=== PATIENT | female | born 1995 | race Caucasian/White ===

== ENCOUNTER 2020-10-22 13:46 | Emergency (ER) | payer MEDICAID ==
[~2020-10-22] VITALS: Ht 170.2 cm; Wt 79.2 kg
[2020-10-22] MEDS ORDERED: ibuprofen tablet 400 MG TABLET PO ONE (14:05)
[2020-10-22] MEDS ORDERED: IBUP-1985 PO (14:08)
== END 2020-10-22 14:18 | disposition home or self-care (01) ==
LOC: ER 13:48
DX: R07.81 Pleurodynia (principal); Z59.0 Homelessness
CPT/HCPCS: 99282

== ENCOUNTER 2020-10-23 06:08 | Emergency (ER) | payer MEDICAID ==
[~2020-10-23] VITALS: Ht 170.2 cm; Wt 86.4 kg
[~2020-10-23 06:08] MED LIST: IBUP-1985 PO
[2020-10-23] MEDS ORDERED: acetaminophen 325mg tablet PO ONE (06:35)
[2020-10-23 06:41] VITALS: BP 113/78
== END 2020-10-23 06:48 | disposition home or self-care (01) ==
LOC: ER 06:09
DX: R07.81 Pleurodynia (principal); Z59.0 Homelessness; Z79.899 Other long term (current) drug therapy; Z00.01 Encounter for general adult medical examination with abnormal findings
CPT/HCPCS: 99282

== ENCOUNTER 2020-10-30 10:05 | Emergency (ER) | payer MEDICAID ==
--- NOTE | 2020-10-30 10:28 | NUR ---
Pt reported to throw clipboard at registration staff and left lobby.
== END 2020-10-30 11:09 | disposition left against medical advice (07) ==
LOC: ER 10:05
DX: R07.81 Pleurodynia (principal); Z53.21 Procedure and treatment not carried out due to patient leaving prior to being seen by health care provider

== ENCOUNTER 2020-11-13 05:13 | Emergency (ER) | payer MEDICAID ==
[~2020-11-13] VITALS: Ht 170.2 cm; Wt 65.9 kg
[2020-11-13 05:16] VITALS: BP 119/79
--- NOTE | 2020-11-13 05:33 | NUR ---
UNABLE TO ASSESS PATIENT DUE TO UNCOOPERATIVE BEHAVIOR, NOT ANSWERING QUESTIONS, PT GIVEN PANTS AND LEFT AMA WITHOUT SIGNING PAPERS
== END 2020-11-13 05:36 | disposition left against medical advice (07) ==
LOC: ER 05:13
DX: R19.7 Diarrhea, unspecified (principal); Z13.89 Encounter for screening for other disorder; Z59.0 Homelessness
CPT/HCPCS: 99281

== ENCOUNTER 2020-11-29 11:56 | Emergency (ER) | payer MEDICAID ==
[~2020-11-29] VITALS: Ht 167.6 cm; Wt 77.4 kg
[2020-11-29 12:01] VITALS: BP 132/71
--- NOTE | 2020-11-29 13:39 | NUR ---
Patient attempted to call back to room x3, patient not in lobby. Attempted to contact patient by phone, number disconnected. aware of LWOB
== END 2020-11-29 13:45 | disposition left against medical advice (07) ==
LOC: ER 11:57
DX: M79.606 Pain in leg, unspecified (principal); Z53.21 Procedure and treatment not carried out due to patient leaving prior to being seen by health care provider

== ENCOUNTER 2020-12-15 16:21 | Emergency (ER) | payer MEDICAID | END 2020-12-15 17:54 | disposition left against medical advice (07) | LOC: ER 16:21 | DX: Z00.00 Encounter for general adult medical examination without abnormal findings (principal); G89.29 Other chronic pain; Z60.2 Problems related to living alone; Z59.0 Homelessness; Z79.899 Other long term (current) drug therapy | CPT/HCPCS: 99281 ==

== ENCOUNTER 2020-12-24 09:54 | Emergency (ER) | payer MEDICAID ==
[~2020-12-24] VITALS: Ht 167.6 cm; Wt 68.2 kg
[2020-12-24] MEDS ORDERED: CLOT15CR73 TP (10:05)
[2020-12-24 10:06] VITALS: BP 130/64
== END 2020-12-24 10:21 | disposition home or self-care (01) ==
LOC: ER 09:55
DX: R21 Rash and other nonspecific skin eruption (principal); Z13.89 Encounter for screening for other disorder; Z59.0 Homelessness; Z79.899 Other long term (current) drug therapy
CPT/HCPCS: 99283

== ENCOUNTER 2023-04-11 14:49 | Emergency (ER) | payer MEDICAID, OTHER ==
[~2023-04-11] VITALS: Ht 170.2 cm; Wt 75.0 kg
[~2023-04-11 14:49] MED LIST changes: +CLOT15CR73 TP
[2023-04-11 14:58] VITALS: BP 98/74
[2023-04-11] MEDS ORDERED: bacitracin 15gm ointment TP ONE (15:20)
== END 2023-04-11 16:12 | disposition home or self-care (01) ==
LOC: ER 14:49
DX: J34.89 Other specified disorders of nose and nasal sinuses (principal); M79.671 Pain in right foot; M79.672 Pain in left foot; Z56.0 Unemployment, unspecified; Z59.00 Homelessness unspecified; Z79.899 Other long term (current) drug therapy
CPT/HCPCS: 99282

== ENCOUNTER 2023-04-14 20:04 | Inpatient (IN) | payer MEDICAID, OTHER ==
[~2023-04-14] VITALS: Ht 162.6 cm; Wt 88.9 kg
[2023-04-14] MEDS ORDERED: ARIPIPRAZOLE 10 MG TABLET PO STA (20:19)
[2023-04-14] MEDS ORDERED: ziprasidone IM 20mg inj **IM only IM ONE ×2 (20:20→20:38)
[2023-04-14 20:35] LABS: BASOPHILS % (AUTO) 0.6 % (0-1); EOSINOPHILS # (AUTO) 0.1 X10'3 (0-0.9); HEMATOCRIT 38.7 % (35.0-45.0); HEMOGLOBIN 12.8 g/dl (12.0-16.0); LYMPHOCYTES # (AUTO) 1.5 X10'3 (1.1-4.8); LYMPHOCYTES % (AUTO) 28.7 % (21-51); MEAN CORPUSCULAR HGB CONC 33.2 g/dL (33.0-36.5); MEAN CORPUSCULAR VOLUME 87.5 FL (78-98); MEAN PLATELET VOLUME 7.8 FL (7.4-10.4); MONOCYTES # (AUTO) 0.4 X10'3 (0-0.9); MONOCYTES % (AUTO) 7.2 % (2-12); NEUTROPHILS # (AUTO) 3.3 X10'3 (1.8-7.7); NEUTROPHILS % (AUTO) 61.5 % (42-75); PLATELET COUNT 340 X10'3 (140-440); RED BLOOD COUNT 4.43 X10'6 (4.20-5.60); RED CELL DISTRIBUTION WIDTH 13.9 % (11.5-14.5); WHITE BLOOD COUNT 5.4 X10'3 (4.5-11.0)
[2023-04-14 20:46] LABS: ALANINE AMINOTRANSFERASE 18 U/L (12-78); ALBUMIN 3.5 G/DL (3.4-5.0); ALBUMIN/GLOBULIN RATIO 1.1 (1.1-1.5); ALKALINE PHOSPHATASE 100 IU/L (46-116); ANION GAP 6 (8-16); ASPARTATE AMINO TRANSFERASE 10 U/L (10-37); BILIRUBIN,TOTAL 0.3 MG/DL (0.1-1.0); BLOOD UREA NITROGEN 18 MG/DL (7-18); BUN/CREATININE RATIO 26.5 (10.0-20.0); CALCIUM 8.6 MG/DL (8.5-10.1); CHLORIDE 106 MMOL/L (99-107); CREATININE 0.68 MG/DL (0.40-0.90); GLUCOSE 121 MG/DL (70-104); SODIUM 142 MMOL/L (135-145); TOTAL CARBON DIOXIDE 29.7 MMOL/L (24-32); TOTAL PROTEIN 6.6 G/DL (6.4-8.2); eGFR > 90 ML/MIN
[2023-04-14 20:55] LABS: ETHANOL < 0.010 GM/DL (0.0-0.010)
[2023-04-14 21:25] LABS: URINE HCG NEGATIVE (NEG)
[2023-04-14 21:44] LABS: URINE AMPHETAMINE SCREEN POSITIVE (Neg); URINE BARBITUATE SCREEN NEGATIVE (Neg); URINE BENZODIAZEPINES SCREEN NEGATIVE (Neg); URINE CANNABINOID SCREEN NEGATIVE (Neg); URINE COCAINE SCREEN NEGATIVE (Neg); URINE METHADONE SCREEN NEGATIVE (Neg); URINE OPIATE SCREEN NEGATIVE (Neg); URINE PHENCYCLIDINE SCREEN NEGATIVE (Neg)
--- NOTE | 2023-04-15 07:02 | NUR ---
Patient asked if she can call a friend or somebody as she stated she wants to go home. I explained to patient that she was here for mental health evaluation and that we have to wait for a community mental health social worker from [facility] to evaluate her. I also explained to her that she is currently on mental health hold and do not have a discharge order yet at this time.
--- NOTE | 2023-04-15 08:14 | NUR ---
Breakfast served to the patient.
--- NOTE | 2023-04-15 10:43 | NUR ---
Currently resting on the gurney, calm and comfortable
--- NOTE | 2023-04-15 13:53 | NUR ---
Patient refused vital signs. Pt repeatedly telling me she will be going home. I told patient we dont have a discharge order for her to go home at this time.
--- NOTE | 2023-04-15 16:36 | NUR ---
Patient requested to speak to me. When I got to her room, patient again stated about being discharge. I reminded her again that she is currently on mental health hold and that we will let her know if she has a discharge order. Patient started telling me that someone came to her room, the lady that come to her room talked to her about an trademark attorney in regards to getting public gurdian then started telling me about a baby. When I asked her about who's baby she was referring to or if this is her baby she was talking about, she replied to me "it could be my baby or someone else's baby!" Patient has lack of eye contact during conversation with her and frequently has flight of ideas.
--- NOTE | 2023-04-15 20:25 | NUR ---
called to give report on pt being tx to floor, [facility] nurse stated charge nurse is going to come down to ed and chart picker pt. nurse came down and picked up pt and belongings with no bedside report given. ed charge gang weigher informed
[2023-04-15] MEDS ORDERED: NO HOME MEDS (21:24)
[2023-04-15] MEDS ORDERED: mag hydrox/Alum hydrox/simeth 30ml oral suspension PO PRN (21:25)
[2023-04-15] MEDS ORDERED: acetaminophen 325mg tablet PO PRN (21:25)
[2023-04-15] MEDS ORDERED: loperamide 2mg capsule PO PRN (21:25)
--- NOTE | 2023-04-15 22:20 | NUR ---
Admission Note: 27 year old female admitted on a 5150 for GD. Per 5150 pt has hx of Schizophrenia, is making non-sensical statements, reports fear of being murdered and believes "alot of people are being killed." She is unable to formulate a viable plan for food/clothing/snf. Pt is currently homeless, has hx of being followed by [facility], and stays at the [facility] in [place] and states she has a caser [employer]. She was escorted to the unit by myself and security. Safety check completed by RICHARD Kauffman. Skin check completed by myself and Beatrice HODGES. Pt took a shower. She denies voices, but continues to make non-sensical statements, appears paranoid, and can be irritable at times.
[2023-04-16 07:50] LABS: HEMOGLOBIN A1C 5.1 % (4.5-6.2)
[2023-04-16 08:00] VITALS: BP 113/50
[2023-04-16 08:04] LABS: CHOL/HDL RATIO 3.1 (0.00-4.99); CHOLESTEROL 118 MG/DL (0-200); HDL CHOLESTEROL 38 MG/DL (35-60); LDL CHOLESTEROL 56 MG/DL (50-100); TRIGLYCERIDES 122 MG/DL (20-135)
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
--- NOTE | 2023-04-16 17:41 | NUR ---
Nursing Progress Note: Imani Problem: Pt is a 27 year old female admitted on a 5150 for GD. Per 5150 Pt has Hx of Schizophrenia, is making non-sensical statements, reports fear of being murdered and believes "a lot of people are being killed." She is unable to formulate a viable plan for food/clothing/fdc. Pt is currently homeless, has Hx of being followed by [facility], and stays at the [facility] in [place]. Interventions: Provided 1:1 assessment, therapeutic communication, maintained a safe and supportive environment, ensured contract for safety, provided clear and simple instructions, provided active listening and positive encouragement, and maintained Q 15min safety checks. Response: Received Pt in bed sleeping w/o distress at the beginning of this shift. Pt woke and was cooperative with vitals and walked around unit a bit before returning to bed and politely refusing breakfast. Pt slept for most of the morning. She got up for snack and ate some of her lunch. Pt spoke with this RN in a disorganized manner, but was polite. Pt reports bouncing back and forth between [facility] and [facility] and says she will stay here for a while. She spoke about a warrant for herself but did not specify where. She met with Dr Enrique in late afternoon and returned to bed again. Plan: Patient requires stabilization and possible medication adjustment in a safe and therapeutic environment.
[2023-04-16] MEDS: ziprasidone 20mg capsule PO SCH (20:11)
[2023-04-16] MEDS: ARIPIPRAZOLE 15 MG TABLET PO SCH (20:11)
[2023-04-16] MEDS: LORazepam 1 MG tablet PO PRN (20:15)
[2023-04-16 20:48] VITALS: BP 103/65
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
[2023-04-17] MEDS: ziprasidone 20mg capsule PO SCH ×2 (08:00→20:09)
[2023-04-17 08:07] VITALS: BP 133/96
--- NOTE | 2023-04-17 13:18 | NUR ---
Nursing Progress Note: Problem: Pt is a 27 year old female admitted on a 5150 for GD. Per 5150 Pt has Hx of Schizophrenia, is making non-sensical statements, reports fear of being murdered and believes "a lot of people are being killed." She is unable to formulate a viable plan for food/clothing/half-way. Pt is currently homeless, has Hx of being followed by [facility], and stays at the [facility] in [place]. Interventions: Provided 1:1 assessment, therapeutic communication, maintained a safe and supportive environment, ensured contract for safety, provided clear and simple instructions, provided active listening and positive encouragement, and maintained Q 15min safety checks. Response: Pt lays in bed on and off most of the shift. She is pleasant when engaging in conversation but disorganized. She changes into clean clothes after breakfast and is seen socializing with peers. Denies having SI, HI, AH, and VH. She is not agitated or responding to IS at this time. She takes frequent naps. Pt is medication compliant Plan: Patient requires stabilization and possible medication adjustment in a safe and therapeutic environment.
[2023-04-17] MEDS: LORazepam 1 MG tablet PO PRN (16:48)
[2023-04-17 19:28] VITALS: BP 103/62
[2023-04-17] MEDS: ARIPIPRAZOLE 15 MG TABLET PO SCH (20:09)
[2023-04-17] MEDS: magnesium hydroxide 30ml (MOM) UD suspension PO PRN (20:18)
--- NOTE | 2023-04-18 03:30 | NUR ---
Nursing Progress Note: Problem: Pt is a 27 year old female admitted on a 5150 for GD. Per 5150 Pt has Hx of Schizophrenia, is making non-sensical statements, reports fear of being murdered and believes "a lot of people are being killed." She is unable to formulate a viable plan for food/clothing/senior living. Pt is currently homeless, has Hx of being followed by [facility], and stays at the [facility] in [place]. Interventions: Provided 1:1 assessment, therapeutic communication, maintained a safe and supportive environment, ensured contract for safety, provided clear and simple instructions, provided active listening and positive encouragement, and maintained Q 15min safety checks. Response: Upon turn of shift noted patient lying in bed reading. Isolated to room last night. Noted to be fairly groomed and wearing clean street clothes. Noted to have disorganized thinking. Denies having SI, HI, AH, and VH however, responding to I.S. Reports that she had a BM today but she had to, pick it out. Also reports that she feels like something is guiding me to ask for help. Compliant with HS meds. PRN M.O.M administered. VSS. Slept well tonight. Will continue to monitor. Plan: Patient requires stabilization and possible medication adjustment in a safe and therapeutic environment.
[2023-04-18] MEDS: ziprasidone 20mg capsule PO SCH ×2 (07:30→20:31)
[2023-04-18 08:00] VITALS: BP 98/68
[2023-04-18] MEDS: LORazepam 1 MG tablet PO PRN ×2 (09:00→15:28)
--- NOTE | 2023-04-18 11:05 | NUR ---
Initial: Pt admit on 5150 d/t gravely disabled. Currently on a regular diet and eating well, documented with 75-100% PO intake since admit with the exception of two meals, overall meeting estimated nutrient needs. Pt documented as constipated with LBM 04/17, received first PRN MoM 04/17. No documented edema or wounds. No nutrition intervention implemented at this time. Will continue to follow. Recommendations: 1) Continue regular diet 2) Bowel care PRN 3) Weekly scaled weights Addendum: 04/18/23 at [address] Amended: Links added.
--- NOTE | 2023-04-18 17:16 | NUR ---
Nursing Progress Note: Problem: Pt is a 27 year old female admitted on a 5150 for GD. Per 5150 Pt has Hx of Schizophrenia, is making non-sensical statements, reports fear of being murdered and believes "a lot of people are being killed." She is unable to formulate a viable plan for food/clothing/custodial. Pt is currently homeless, has Hx of being followed by [facility], and stays at the [facility] in [place]. Interventions: Provide medication administration & medication management; Maintained a safe & supportive environment; Clear & simple instructions; Direction & encouragement regarding performance of ADLs; monitored behaviors & maintained clear boundaries; Patient physical assessment & 1:1 patient interview; Therapeutic conversation & active listening; Patient education & monitoring. Response: Received patient at 0630 and she was awake in her room reading a book while laying on her bed. Patient requested Motrin for c/o BROWN rated at 5 on a scale of 1-10. Patient appeared disorganized in speech and thought process all day long. Patient requested Trazodone for sleep at 0750, and was informed regarding its use. Patient took a shower then returned to her room and was located in the bathroom at 0800 speaking very loudly to herself. Patient was done in the bathroom and this Powerhouse Electrician asked the patient was she appeared upset about while she was in the bathroom. The patient reported A rat tried to bite me in [place] then it tried to kill me, and I think I saw it when I was in the shower today. Informed the patient that we do not have rats here in the shower and attempted to redirect the patient. Patient was asked if she had a bra to wear under her tight t-shirt and she went to her room and put on her bra. Patient c/o anxiety and received Ativan at 0900 with some relief. Patient continued with delusional statements, Auditory & Visual Hallucinations, and responding verbally to what she heard/saw. Dr. Hudson ordered Clonodine 0.1mg po. Attempted to give the patient a Clonodine at 1100 and her BP was too low at 97/62 sitting left arm and HR 82. Patients vital signs were again checked at 1320 and again her BP low at 101/70. Patient was sleeping in bed at this time then received Ativan at 1530 with good relief from anxiety. Plan: Patient requires stabilization and possible medication adjustment in a safe and therapeutic environment.
[2023-04-18 20:00] VITALS: BP 118/61
[2023-04-18] MEDS: ARIPIPRAZOLE 15 MG TABLET PO SCH (20:31)
[2023-04-18] MEDS: cloNIDine 0.1 mg tablet PO PRN (20:32)
--- NOTE | 2023-04-19 05:42 | NUR ---
Nursing Progress Note: Problem: Pt is a 27 year old female admitted on a 5150 for GD. Per 5150 Pt has Hx of Schizophrenia, is making non-sensical statements, reports fear of being murdered and believes "a lot of people are being killed." She is unable to formulate a viable plan for food/clothing/intermediate. Pt is currently homeless, has Hx of being followed by [facility], and stays at the [facility] in [place]. Interventions: 1:1 assessment, therapeutic communication, active listening, provided clear and simple instructions, medication administration/education/monitoring, behavior monitoring and intervention as needed; provided distraction, direction, positive reinforcement, reality orientation, maintained a safe and supportive environment, and Q15 minute safety checks. Response: Received pt in day room, where she was looking at books to read. Pt is pleasant, calm and cooperative. Pt is noticed to have disorganized thinking and flight of ideas during our interview. Pts speech is pressured and is seen talking to unseen others. I need information on Rheumatoid Arthritis, look at my hands and how big my veins are. Pt was educated on RA and explained that her blood vessels look fine. Pt goes on to talk about with ellie, then asks if she takes these medications will she wake up in the morning. Pt reassured about her HS medications, she is med compliant. Catapress was given for anxiety. Monitor for safety q15 minutes. Plan: Patient requires stabilization and possible medication adjustment in a safe and therapeutic environment.
[2023-04-19 07:55] VITALS: BP 110/60
[2023-04-19] MEDS: ziprasidone 20mg capsule PO SCH ×2 (08:28→21:10)
[2023-04-19] MEDS: LORazepam 1 MG tablet PO PRN ×2 (14:36→21:10)
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
[2023-04-19 20:00] VITALS: BP 112/63
[2023-04-19] MEDS: ARIPIPRAZOLE 15 MG TABLET PO SCH (21:10)
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
[2023-04-20 08:00] VITALS: BP 102/41
[2023-04-20] MEDS: ziprasidone 20mg capsule PO SCH ×2 (08:09→20:07)
[2023-04-20] MEDS: LORazepam 1 MG tablet PO PRN ×2 (09:33→17:36)
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
[2023-04-20] MEDS: acetaminophen 325mg tablet PO PRN (17:41)
[2023-04-20] MEDS: ARIPIPRAZOLE 15 MG TABLET PO SCH (20:07)
[2023-04-20 20:27] VITALS: BP 96/66
[2023-04-20] MEDS: NICOTINE POLACRILEX 2 MG LOZENGE BC PRN (20:57)
--- NOTE | 2023-04-21 00:20 | NUR ---
Nursing Progress Note: Imani Problem: Pt is a 27 year old female admitted on a 5150 for GD. Per 5150 Pt has Hx of Schizophrenia, is making non-sensical statements, reports fear of being murdered and believes "a lot of people are being killed." She is unable to formulate a viable plan for food/clothing/correction. Pt is currently homeless, has History of being followed by [facility], and stays at the [facility] in [place]. Interventions: Provide medication administration & medication management; Maintained a safe & supportive environment; Clear & simple instructions; Direction & encouragement regarding performance of ADLs; monitored behaviors & maintained clear boundaries; Patient physical assessment & 1:1 patient interview; Therapeutic conversation & active listening; Patient education & monitoring. Response: Received patient in her room. She is making non-sensical tangential statements. Pts speech is rapid and pressured. She is talking about lesbians and that it could be fun. She endorses AH and states that the voices can be very controlling and they show themselves. She also talked about guns and threats and wants to talk to a see supervisor. Pt took HS medications without issue (along with PRN nicotine lozenge), participated in snacks and appears to be sleeping at this moment. No needs requested at this time. Plan: Patient requires stabilization and possible medication adjustment in a safe and therapeutic environment.
[2023-04-21] MEDS: LORazepam 1 MG tablet PO PRN ×3 (07:34→20:17)
[2023-04-21] MEDS: ziprasidone 20mg capsule PO SCH ×2 (07:34→20:17)
[2023-04-21 08:00] VITALS: BP 96/65
[2023-04-21] MEDS: NICOTINE POLACRILEX 2 MG LOZENGE BC PRN ×3 (08:29→16:34)
--- NOTE | 2023-04-21 13:31 | NUR ---
5250 upheld for GD
--- NOTE | 2023-04-21 16:27 | NUR ---
Nursing Progress Note: Problem: Pt is a 27 year old female admitted on a 5150 for GD. Per 5150 Pt has Hx of Schizophrenia, is making non-sensical statements, reports fear of being murdered and believes "a lot of people are being killed." She is unable to formulate a viable plan for food/clothing/usp. Pt is currently homeless, has History of being followed by [facility], and stays at the [facility] in [place]. Interventions: Provide medication administration & medication management; Maintained a safe & supportive environment; Clear & simple instructions; Direction & encouragement regarding performance of ADLs; monitored behaviors & maintained clear boundaries; Patient physical assessment & 1:1 patient interview; Therapeutic conversation & active listening; Patient education & monitoring. Response: Received patient who was awake early and was talking about multiple subjects with rapid speech and appeared to do so in a disorganized manner. Patient was administered her scheduled 0800 medications and when she was taking her medications she asked this Clinical Data Associate if I could See the bugs crawling under my toenails and under my fingernails. Informed the patient that I do not see what she is describing. Patient continued to look at her fingers and toes up close for approximately 10 minutes while Ativan was retrieved from the [facility] then administered to the patient at 0734. Patient then slept for a few hours and got up out of bed and participated in lunch and was sitting in the back of the Community Room talking delusions the entire time about So you didnt cook this? You put this in the cupboard and thats what you are telling me? Patient has been delusional and making statements about many different people/situations throughout the day. Patient received a second Ativan at 1321 [address] hearing where they upheld her 5250. Plan: Patient requires stabilization and possible medication adjustment in a safe and therapeutic environment.
[2023-04-21 20:00] VITALS: BP 96/63
[2023-04-21] MEDS: ARIPIPRAZOLE 15 MG TABLET PO SCH (20:17)
--- NOTE | 2023-04-22 00:28 | NUR ---
Nursing Progress Note: Imani Problem: Pt is a 27 year old female admitted on a 5150 for GD. Per 5150 Pt has Hx of Schizophrenia, is making non-sensical statements, reports fear of being murdered and believes "a lot of people are being killed." She is unable to formulate a viable plan for food/clothing/custodial. Pt is currently homeless, has History of being followed by [facility], and stays at the [facility] in [place]. Interventions: Provide medication administration & medication management; Maintained a safe & supportive environment; Clear & simple instructions; Direction & encouragement regarding performance of ADLs; monitored behaviors & maintained clear boundaries; Patient physical assessment & 1:1 patient interview; Therapeutic conversation & active listening; Patient education & monitoring. Response: Received patient in her room Marshallese braiding her hair. PT stated she learned how to Marshallese braid while playing with her Pebbles dolls when she was little. The pt then walked to the community room and began conversing with some of her peers. The pt participated in snacks and took all HS medications. The patient began talking about multiple subjects with rapid speech and appeared to do so in a disorganized manner. After pt took her HS medications she said I hope they get me ciarra high. The pt retired to bed shortly after med pass and appears to be sleeping without difficulty. Plan: Patient requires stabilization and possible medication adjustment in a safe and therapeutic environment.
[2023-04-22] MEDS: LORazepam 1 MG tablet PO PRN ×3 (07:50→20:57)
[2023-04-22] MEDS: ziprasidone 20mg capsule PO SCH ×2 (07:50→20:57)
[2023-04-22 08:00] VITALS: BP 108/72
[2023-04-22] MEDS: cloNIDine 0.1 mg tablet PO PRN (17:10)
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
[2023-04-22 20:29] VITALS: BP 96/57
[2023-04-22] MEDS: ARIPIPRAZOLE 15 MG TABLET PO SCH (20:58)
--- NOTE | 2023-04-22 23:09 | NUR ---
Nursing Progress Note: Imani Problem: Pt is a 27 year old female admitted on a 5150 for GD. Per 5150 Pt has Hx of Schizophrenia, is making non-sensical statements, reports fear of being murdered and believes "a lot of people are being killed." She is unable to formulate a viable plan for food/clothing/care home. Pt is currently homeless, has History of being followed by [facility], and stays at the [facility] in [place]. Interventions: Provide medication administration & medication management; Maintained a safe & supportive environment; Clear & simple instructions; Direction & encouragement regarding performance of ADLs; monitored behaviors & maintained clear boundaries; Patient physical assessment & 1:1 patient interview; Therapeutic conversation & active listening; Patient education & monitoring. Response: Patient was observed to be in the hallway talking with other peers. About half hour later she was lying in her bed resting. Pt took all HS medications and said to this RN I think I have a banana. When this RN told her to have a good night she said I love you to this RN. Pt went to bed after med pass and is currently sleeping with no needs at this time. Plan: Patient requires stabilization and possible medication adjustment in a safe and therapeutic environment.
[2023-04-23 07:23] VITALS: BP 100/59
[2023-04-23] MEDS: ziprasidone 20mg capsule PO SCH ×2 (08:09→21:02)
[2023-04-23] MEDS: LORazepam 1 MG tablet PO PRN ×2 (11:44→21:02)
[2023-04-23] MEDS: acetaminophen 325mg tablet PO PRN ×2 (11:45→19:03)
--- NOTE | 2023-04-23 16:52 | NUR ---
Nursing Progress Note: Imani Problem: Pt is a 27 year old female admitted on a 5150 for GD. Per 5150 Pt has Hx of Schizophrenia, is making non-sensical statements, reports fear of being murdered and believes "a lot of people are being killed." She is unable to formulate a viable plan for food/clothing/care home. Pt is currently homeless, has History of being followed by [facility], and stays at the [facility] in [place]. Interventions: Provide medication administration & medication management; Maintained a safe & supportive environment; Clear & simple instructions; Direction & encouragement regarding performance of ADLs; monitored behaviors & maintained clear boundaries; Patient physical assessment & 1:1 patient interview; Therapeutic conversation & active listening; Patient education & monitoring. Response: Received patient sleeping in bed and in no distress at change of shift. Pt woke for vitals and was cooperative and stayed awake for the day. She ate breakfast and took AM meds as prescribed. Pt also received a PRN for anxiety which appeared to be effective. She showered in the morning and sat in her chair and did some writing. Pt had sexual themes in her conversations. She walked halls with a male Pt and talked seemingly appropriately. Pt needed reassurance that she was in a facility that was trying to help her. She was social but did not attend group today. Pts thoughts are disorganized and her responses to questions are not related to the question at times. Plan: Patient requires stabilization and possible medication adjustment in a safe and therapeutic environment.
[2023-04-23] MEDS: NICOTINE POLACRILEX 2 MG LOZENGE BC PRN (19:03)
[2023-04-23 20:00] VITALS: BP 90/63
[2023-04-23] MEDS: ARIPIPRAZOLE 15 MG TABLET PO SCH (21:02)
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
[2023-04-24 07:23] VITALS: BP 108/71
--- NOTE | 2023-04-24 08:14 | NUR ---
F/u 04/23: Pt PO 100% regular and now vegetarian diet since 04/21 continues to meet estimated needs. LBM 04/22 per EMR. No nutrition interventions at this time. Will continue to follow. Recommendations: 1) Continue vegetarian diet; return to regular if pt no longer wants vegetarian restrictions 2) Bowel care PRN 3) Weekly scaled weights Addendum: 04/24/23 at [address] Amended: Links added.
[2023-04-24] MEDS: ziprasidone 20mg capsule PO SCH ×2 (08:29→20:27)
[2023-04-24] MEDS: NICOTINE POLACRILEX 2 MG LOZENGE BC PRN (10:01)
[2023-04-24] MEDS: LORazepam 1 MG tablet PO PRN (16:54)
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
[2023-04-24 20:00] VITALS: BP 120/67
[2023-04-24] MEDS: ARIPIPRAZOLE 15 MG TABLET PO SCH (20:27)
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
[2023-04-25] MEDS: ziprasidone 20mg capsule PO SCH ×2 (07:41→21:07)
[2023-04-25 08:00] VITALS: BP 102/61
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
[2023-04-25] MEDS: LORazepam 1 MG tablet PO PRN (19:24)
[2023-04-25 20:00] VITALS: BP 102/62
[2023-04-25] MEDS ORDERED: ziprasidone 20mg capsule PO SCH (20:00)
[2023-04-25] MEDS: ARIPIPRAZOLE 15 MG TABLET PO SCH (21:07)
--- NOTE | 2023-04-26 03:51 | NUR ---
Nursing Progress Note: Problem: Pt is a 27 year old female admitted on a 5150 for GD. Per 5150 Pt has Hx of Schizophrenia, is making non-sensical statements, reports fear of being murdered and believes "a lot of people are being killed." She is unable to formulate a viable plan for food/clothing/fci. Pt is currently homeless, has History of being followed by [facility], and stays at the [facility] in [place]. Interventions: Provide medication administration & medication management; Maintained a safe & supportive environment; Clear & simple instructions; Direction & encouragement regarding performance of ADLs; monitored behaviors & maintained clear boundaries; Patient physical assessment & 1:1 patient interview; Therapeutic conversation & active listening; Patient education & monitoring. Response: Received pt. in her room at change of shift. Pt. later came out of room requesting Ativan. Ativan 1mg was provided to pt. with effect. Pt. remained in her room most of the night and slept. Denies SI/HI,AH/VH. Pt. states "it's like Im dreaming and Im paralyzed but able to get up and walk around. I'm just trying to focus on my breathing". Pt. is observed and appears to be sleeping without difficulty. Plan: Patient requires stabilization and possible medication adjustment in a safe and therapeutic environment. Addendum: 04/26/23 at 0402 by Keeley Moss LVN Pt. took all night medications without issue. Addendum: 04/27/23 at 0525 by Marie Rivera RN FIELD SALES CONSULTANT DOCUMENTATION: I have reviewed the FIELD SALES CONSULTANT note. Marie Rivera, RN
[2023-04-26] MEDS: ziprasidone 20mg capsule PO SCH ×2 (07:38→20:03)
[2023-04-26] MEDS: acetaminophen 325mg tablet PO PRN ×2 (07:39→15:17)
[2023-04-26 08:00] VITALS: BP 93/55
[2023-04-26] MEDS: LORazepam 1 MG tablet PO PRN (15:16)
--- NOTE | 2023-04-26 15:47 | NUR ---
Nursing Progress Note: Imani Problem: Pt is a 27 year old female admitted on a 5150 for GD. Per 5150 Pt has Hx of Schizophrenia, is making non-sensical statements, reports fear of being murdered and believes "a lot of people are being killed." She is unable to formulate a viable plan for food/clothing/fpc. Pt is currently homeless, has History of being followed by [facility], and stays at the [facility] in [place]. Interventions: Provide medication administration & medication management; Maintained a safe & supportive environment; Clear & simple instructions; Direction & encouragement regarding performance of ADLs; monitored behaviors & maintained clear boundaries; Patient physical assessment & 1:1 patient interview; Therapeutic conversation & active listening; Patient education & monitoring. Response: Received patient sleeping in bed and in no distress at change of shift. Pt woke for vitals and was cooperative and stayed awake for the day. She ate breakfast and took her AM med and prn Tylenol as prescribed. Pt also received a PRN for anxiety and Tylenol in afternoon as Pt stating multiple sites of pain which seem r/t delusions sometimes. She showered in the afternoon and walked halls and ate snack. Pt in and out of delusions and periods of smiling that turn to irritability. Her thoughts remain disorganized. Plan: Patient requires stabilization and possible medication adjustment in a safe and therapeutic environment.
[2023-04-26 19:00] VITALS: BP 109/68
[2023-04-26] MEDS: ARIPIPRAZOLE 15 MG TABLET PO SCH (20:04)
--- NOTE | 2023-04-27 02:08 | NUR ---
Nursing Progress Note: Imani Problem: Pt is a 27 year old female admitted on a 5150 for GD. Per 5150 Pt has Hx of Schizophrenia, is making non-sensical statements, reports fear of being murdered and believes "a lot of people are being killed." She is unable to formulate a viable plan for food/clothing/fci. Pt is currently homeless, has History of being followed by [facility], and stays at the [facility] in [place]. Interventions: Provide medication administration & medication management; Maintained a safe & supportive environment; Clear & simple instructions; Direction & encouragement regarding performance of ADLs; monitored behaviors & maintained clear boundaries; Patient physical assessment & 1:1 patient interview; Therapeutic conversation & active listening; Patient education & monitoring. Response: Received pt. in room at change of shift. Pt. later observed standing in the read interacting with another peer. Pt. continues to have disorganized thoughts. Denies SI/HI/AH. When asked about VH pt. states "I sometimes think my friend is here". Pt. then stood in front of bedroom door and began to whisper. Pt. participated in evening snack. Compliant with night medications. She is observed and appears to be sleeping without difficulty. Plan: Patient requires stabilization and possible medication adjustment in a safe and therapeutic environment. Addendum: 04/27/23 at 0525 by Marie Rivera RN COMMERCIAL LINES MANAGER DOCUMENTATION: I have reviewed the COMMERCIAL LINES MANAGER note. Marie Rivera RN
[2023-04-27 07:31] VITALS: BP 95/51
[2023-04-27] MEDS: ziprasidone 20mg capsule PO SCH ×2 (08:41→20:01)
[2023-04-27] MEDS: LORazepam 1 MG tablet PO PRN (10:05)
--- NOTE | 2023-04-27 16:11 | NUR ---
Nursing Progress Note: Imani Problem: Pt is a 27 year old female admitted on a 5150 for GD. Per 5150 Pt has Hx of Schizophrenia, is making non-sensical statements, reports fear of being murdered and believes "a lot of people are being killed." She is unable to formulate a viable plan for food/clothing/fdc. Pt is currently homeless, has History of being followed by [facility], and stays at the [facility] in [place]. Interventions: Provide medication administration & medication management; Maintained a safe & supportive environment; Clear & simple instructions; Direction & encouragement regarding performance of ADLs; monitored behaviors & maintained clear boundaries; Patient physical assessment & 1:1 patient interview; Therapeutic conversation & active listening; Patient education & monitoring. Response: Patient awake and dressed for day when I arrived on shift. Took all Am medications without any issues. PRN Ativan and tylenol given. Ate breakfast in dining area and appeared to be interacting appropriately with peers. Paced around floor with peers talking. Pt. continues to have disorganized thoughts. Denies SI/HI/AH. Pt. participated in snack. No acute changes this shift. Will continue to monitor. Plan: Patient requires stabilization and possible medication adjustment in a safe and therapeutic environment.
[2023-04-27] MEDS: ARIPIPRAZOLE 15 MG TABLET PO SCH (20:03)
[2023-04-27 20:14] VITALS: BP 95/50
--- NOTE | 2023-04-28 03:05 | NUR ---
Nursing Progress Note: Imani Problem: Pt is a 27 year old female admitted on a 5150 for GD. Per 5150 Pt has Hx of Schizophrenia, is making non-sensical statements, reports fear of being murdered and believes "a lot of people are being killed." She is unable to formulate a viable plan for food/clothing/alf. Pt is currently homeless, has History of being followed by [facility], and stays at the [facility] in [place]. Interventions: Provide medication administration & medication management; Maintained a safe & supportive environment; Clear & simple instructions; Direction & encouragement regarding performance of ADLs; monitored behaviors & maintained clear boundaries; Patient physical assessment & 1:1 patient interview; Therapeutic conversation & active listening; Patient education & monitoring. Response: Pt. sitting quietly in room writing and talking to herself at change of shift. Pts. blood pressure 95/50 and when this tag writer asked to retake BP, pt. appeared to get agitated. She paced the unit and continued talking to herself. She continues to have disorganized thoughts. Pt. was compliant with night medication. Denies SI/HI/AH/VH. Pt. is observed and appears to be sleeping Plan: Patient requires stabilization and possible medication adjustment in a safe and therapeutic environment.
[2023-04-28] MEDS: ziprasidone 20mg capsule PO SCH ×2 (07:35→20:10)
[2023-04-28] MEDS: acetaminophen 325mg tablet PO PRN ×3 (07:39→20:10)
[2023-04-28 07:55] VITALS: BP 96/54
[2023-04-28] MEDS: NICOTINE POLACRILEX 2 MG LOZENGE BC PRN (16:25)
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
[2023-04-28 19:15] VITALS: BP 102/68
[2023-04-28] MEDS: ARIPIPRAZOLE 15 MG TABLET PO SCH (20:10)
--- NOTE | 2023-04-28 23:52 | NUR ---
NURSING PROGRESS NOTE Problem: Pt is a 27 year old female admitted on a 5150 for GD. Per 5150 Pt has Hx of Schizophrenia, is making non-sensical statements, reports fear of being murdered and believes "a lot of people are being killed." She is unable to formulate a viable plan for food/clothing/[place] [facility] [place]. Pt is currently homeless, has History of being followed by [facility], and stays at the [facility] in [place]. Interventions: The patient observed up on the unit and is on q 15 minute safety checks. She was assessed for severity of thought disorder. Physical assessment completed. Tylenol given for complaints of pain. Response: The patient appeared distracted by internal stimuli during one to one assessment and she was very disorganized and could not make up her mind where she wanted to sit and talk. When asked about medication side effects she replied that she felt her medications were not strong enough but her speech so disorganized that it was difficult to understand why she felt that way. She did state "I have a broken back" Her speech was rapid and she stated that she was having constant voices and that she believed they were from the . She then stated off topic "The test and turn up technician is a robot, a android" Her speech was so loosely associated that it was close to word salad at times. Plan: Continue hospitalization for further stabilization and treatment
[2023-04-29] MEDS: ziprasidone 20mg capsule PO SCH ×2 (07:23→20:14)
[2023-04-29] MEDS: NICOTINE POLACRILEX 2 MG LOZENGE BC PRN (07:24)
[2023-04-29 08:00] VITALS: BP 124/76
[2023-04-29] MEDS: acetaminophen 325mg tablet PO PRN (10:36)
[2023-04-29] MEDS: LORazepam 1 MG tablet PO PRN ×2 (12:38→21:26)
--- NOTE | 2023-04-29 16:31 | NUR ---
NURSING PROGRESS NOTE Problem: Pt is a 27 year old female admitted on a 5150 for GD. Per 5150 Pt has Hx of Schizophrenia, is making non-sensical statements, reports fear of being murdered and believes "a lot of people are being killed." She is unable to formulate a viable plan for food/clothing/custodial. Pt is currently homeless, has History of being followed by [facility], and stays at the [facility] in [place]. Interventions: The patient observed up on the unit and is on q 15 minute safety checks. She was assessed for severity of thought disorder. Physical assessment completed. Tylenol given for complaints of pain. Response: The patient is very distracted by internal stimuli during one to one interactions. While speaking she will change current conversation to a different topic completely unrelated to initial conversation and begin to answer her own question to self. When given an option to do an activity she cannot process and focus on one clear choice and once again becomes sidetracked. Patient is compliant with medications and will ask for PRN medications r/t anxiety. Speech is very quick and mumbled at times. Plan: Continue hospitalization for further stabilization and treatment.
--- NOTE | 2023-04-29 17:56 | NUR ---
REPORT WRITER documentation: I have reviewed all interventions, assessments performed and documented by SANA Malloy.
[2023-04-29] MEDS: cloNIDine 0.1 mg tablet PO PRN (19:11)
[2023-04-29 20:06] VITALS: BP 113/64
[2023-04-29] MEDS: ARIPIPRAZOLE 15 MG TABLET PO SCH (20:14)
--- NOTE | 2023-04-30 01:36 | NUR ---
RSING PROGRESS NOTE Problem: Pt is a 27 year old female admitted on a 5150 for GD. Per 5150 Pt has Hx of Schizophrenia, is making non-sensical statements, reports fear of being murdered and believes "a lot of people are being killed." She is unable to formulate a viable plan for food/clothing/penitentiary. Pt is currently homeless, has History of being followed by [facility], and stays at the [facility] in [place]. Interventions: The patient observed up on the unit and is on q 15 minute safety checks. She was assessed for severity of thought disorder. Physical assessment completed. Tylenol given for complaints of pain. Response: Pt was walking in the hallway at change of shift wearing headphones. Pt is hypersexual and c/o "He told me they won't let me hump him." Pt was redirected and encouraged to keep distance from male patient she had been referring to. Pt is anxious, responding to internal stimuli. Pt is fearful stating that she thinks her roommate is going to hurt her. Pt was assured she is safe. Pt had snacks and took HS meds before going to bed. Pt is experiencing delusions and began crying, concerned that her children were being harmed. Pt became increasingly anxious and was given ativan prn with good effect. Pt returned to bed and went to sleep. Plan: Continue hospitalization for further stabilization and treatment.
[2023-04-30 07:21] VITALS: BP 93/64
[2023-04-30] MEDS: LORazepam 1 MG tablet PO PRN ×2 (07:34→16:15)
[2023-04-30] MEDS: ziprasidone 20mg capsule PO SCH ×2 (07:47→20:43)
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
--- NOTE | 2023-04-30 15:39 | NUR ---
NURSING PROGRESS NOTE Problem: Pt is a 27 year old female admitted on a 5150 for GD. Per 5150 Pt has Hx of Schizophrenia, is making non-sensical statements, reports fear of being murdered and believes "a lot of people are being killed." She is unable to formulate a viable plan for food/clothing/[place] [facility] [place]. Pt is currently homeless, has History of being followed by [facility], and stays at the [facility] in [place]. Interventions: The patient observed up on the unit and is on q 15 minute safety checks. She was assessed for severity of thought disorder. Physical assessment completed. Tylenol given for complaints of pain. Response: Pt awake at change of shift. Pt ambulating the halls. Pt seen most of the day talking with herself. Pt having visual hallucinations seeing someone harassing her in the hallway. Pt makes statements like "They use horse shoeing tools as torture to torture people." Pt is easily redirectible and distractible. Plan: Continue hospitalization for further stabilization and treatment.
[2023-04-30 19:00] VITALS: BP 92/40
[2023-04-30] MEDS: ARIPIPRAZOLE 15 MG TABLET PO SCH (20:43)
--- NOTE | 2023-05-01 05:16 | NUR ---
NURSING PROGRESS NOTE Problem: Pt is a 27 year old female admitted on a 5150 for GD. Per 5150 Pt has Hx of Schizophrenia, is making non-sensical statements, reports fear of being murdered and believes "a lot of people are being killed." She is unable to formulate a viable plan for food/clothing/senior care. Pt is currently homeless, has History of being followed by [facility], and stays at the [facility] in [place]. Interventions: One to one to assess mood, therapeutic communication, active listening, provided clear and simple instructions, medication administration/education/monitoring, behavior monitoring and intervention as needed, positive reinforcement, reality orientation, maintained a safe and supportive environment, and Q15 minute safety checks. Response: Pt in hallway singing to the music on the headphones. Pt is calm and pleasant with functional tester typewriters. Pt denies SI/HI/AVH. Pt needed a weekly weight. I hope I gained 20 lbs. I usually weigh 200 lbs. Pt weighed in at 179 lbs. (88.9 kg). Pt is seen laughing spontaneously to herself, seen listening to headphones while reading a book. Pt is disorganized and paranoid. Talks about a lot. Pt is medication compliant at HS. No behavioral issues tonight. Monitor for safety. Plan: Continue hospitalization for further stabilization and treatment.
[2023-05-01 08:23] VITALS: BP 99/66
[2023-05-01] MEDS: LORazepam 1 MG tablet PO PRN ×2 (08:38→19:39)
[2023-05-01] MEDS: ziprasidone 20mg capsule PO SCH ×2 (08:38→19:39)
[2023-05-01] MEDS: acetaminophen 325mg tablet PO PRN (14:15)
[2023-05-01] MEDS: NICOTINE POLACRILEX 2 MG LOZENGE BC PRN (17:43)
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
[2023-05-01] MEDS: ARIPIPRAZOLE 15 MG TABLET PO SCH (19:39)
[2023-05-01 20:00] VITALS: BP 96/60
--- NOTE | 2023-05-02 05:35 | NUR ---
NURSING PROGRESS NOTE Problem: Pt is a 27 year old female admitted on a 5150 for GD. Per 5150 Pt has Hx of Schizophrenia, is making non-sensical statements, reports fear of being murdered and believes "a lot of people are being killed." She is unable to formulate a viable plan for food/clothing/senior living. Pt is currently homeless, has History of being followed by [facility], and stays at the [facility] in [place]. Interventions: One to one to assess mood, therapeutic communication, active listening, provided clear and simple instructions, medication administration/education/monitoring, behavior monitoring and intervention as needed, positive reinforcement, reality orientation, maintained a safe and supportive environment, and Q15 minute safety checks. Response: Pt received in her room, she is reading a scientologist book. Do you have any books you can bring me. I like any kind of scientologist books Restorationism, Mosque or Oriental Orthodox. I like love stories, childrens books or animal ones. Pt started to talk about having sex with a Chihuahua. Pt was given her night medications early along with Ativan. Pt is using the headphones to distract herself from the voices. Pt denies SI/HI/AVH. Pt was able to calm down and go to sleep. Monitor for safety. Plan: Continue hospitalization for further stabilization and treatment.
[2023-05-02] MEDS: ziprasidone 20mg capsule PO SCH ×2 (07:06→20:41)
[2023-05-02] MEDS: NICOTINE POLACRILEX 2 MG LOZENGE BC PRN (07:06)
[2023-05-02 08:00] VITALS: BP 104/64
[2023-05-02] MEDS: LORazepam 1 MG tablet PO PRN ×3 (08:47→20:41)
--- NOTE | 2023-05-02 17:00 | NUR ---
Nursing Progress Note: Problem : Pt is a 27 year old female admitted on a 5150 for GD. Per 5150 Pt has Hx of Schizophrenia, is making non-sensical statements, reports fear of being murdered and believes "a lot of people are being killed." She is unable to formulate a viable plan for food/clothing/chcf. Pt is currently homeless, has History of being followed by [facility], and stays at the [facility] in [place]. Interventions :Ensured contract for safety, maintained a safe and supportive environment, provided clear and simple instruction, attempted to orient to reality, provided active listening and positive encouragement,monitored behaviors and need for intervention, and maintained Q 15min safety checks. Response: Received pt. sleeping in bed at the beginning of the shift, she awoke and was observed to be pacing the hallway signing aloud while wearing headphones. At approximately 8:45, pt. became slightly agitated and yelled out in what appeared to be a delusional manner while standing in the hallway, "They are going to hold me here for two more days because I don't have a place to go, but I do! I just need socks!" This va underwriter provided active listening and positive encouragement and PRN Ativan was administered with effectiveness. Pt. continues to appear to be responding aloud to internal stimuli in a disorganized manner at frequent intervals. Her speech remains hyperverbal, rapid, and disorganized and she talks about random subjects, many continuing to contain a sexual content matter. Pt. stated, "My name isn't Imani Silver, that's a pornstar's name. I think it's Buttercup." Pt's thought process continues to be be very disorganized and she is difficult to understand. She continues to deny any S/I or H/I. Pt. does endorse A/BROWN and states, "I hear my friend's voice arguing. I like to eat Setswana food. Used to hang out with this Bhutanese dilma." She also endorses ongoing paranoid delusions that random others want to hurt her. Pt. then became distracted and abruptly walked away from the conversation. In the afternoon, pt. again exhibited increased anxiety AEB restlessness and increased response to internal stimuli. PRN Ativan was again administered with effectiveness. Plan : Pt. continues to require a safe and supportive environment and an increase in medications per Dr. Rose.
[2023-05-02 19:00] VITALS: BP 101/57
[2023-05-02] MEDS: ARIPIPRAZOLE 15 MG TABLET PO SCH (20:41)
--- NOTE | 2023-05-02 20:54 | NUR ---
Ativan given one hour early for anxiety. Prune juice given as requested.
--- NOTE | 2023-05-03 02:14 | NUR ---
Nursing Progress Note: Problem : Pt is a 27 year old female admitted on a 5150 for GD. Per 5150 Pt has Hx of Schizophrenia, is making non-sensical statements, reports fear of being murdered and believes "a lot of people are being killed." She is unable to formulate a viable plan for food/clothing/group home. Pt is currently homeless, has History of being followed by [facility], and stays at the [facility] in [place]. Interventions :Ensured contract for safety, maintained a safe and supportive environment, provided clear and simple instruction, attempted to orient to reality, provided active listening and positive encouragement,monitored behaviors and need for intervention, and maintained Q 15min safety checks. Response: This patient was observed about the unit following shift change. 1:1 Interview at bedside. The patient speaks rapidly. She acknowledges audio visual hallucinations but will not elaborate. The patient complains of right flank pain and frequency of urination and burning. A CCMS urine was achieved and sent for analysis. The UA was unremarkable, it was also negative for blood. The patient exhibited anxiety, she paced the hallways. Ativan, Ativan, Seroquel and Trazadone were administered this shift. The patient was needy but cooperative. Plan : Pt. continues to require a safe and supportive environment and an increase in medications per Dr. Rose. Addendum: 05/03/23 at 0253 by Yovanny Alvarez RN The above "Response" documentation was wrong, it was not for this patient. Mistake.
--- NOTE | 2023-05-03 02:15 | NUR ---
Ignore above nurse progress note. The response documentation was for another patient.
--- NOTE | 2023-05-03 03:03 | NUR ---
Nursing Progress Note: Problem : Pt is a 27 year old female admitted on a 5150 for GD. Per 5150 Pt has Hx of Schizophrenia, is making non-sensical statements, reports fear of being murdered and believes "a lot of people are being killed." She is unable to formulate a viable plan for food/clothing/snf. Pt is currently homeless, has History of being followed by [facility], and stays at the [facility] in [place]. Interventions :Ensured contract for safety, maintained a safe and supportive environment, provided clear and simple instruction, attempted to orient to reality, provided active listening and positive encouragement,monitored behaviors and need for intervention, and maintained Q 15min safety checks. Response: Patient resided in her room following shift change. Patient admits to non descriptive audible and visual hallucinations. Her primary complaint is anxiety. Patient exhibits tangential speech. Patient denies S/I or H/I. She is cooperative and medication compliant. Plan : Pt. continues to require a safe and supportive environment and an increase in medications per Dr. Rose.
[2023-05-03] MEDS: LORazepam 1 MG tablet PO PRN (07:58)
[2023-05-03] MEDS: ziprasidone 20mg capsule PO SCH ×2 (07:58→20:14)
[2023-05-03 08:00] VITALS: BP 124/73
[2023-05-03] MEDS: magnesium hydroxide 30ml (MOM) UD suspension PO PRN (12:10)
--- NOTE | 2023-05-03 13:23 | NUR ---
Reassessment: Pt back on a regular diet and continues eating well, documented with mostly 100% PO intake while receiving double protein TID exceeding estimated nutrient needs. LBM 6/30 per EMR, likely intended to be 04/29 but LBM also unknown per EMR. Pt received PRN MoM today. No nutrition intervention implemented at this time. Will continue to follow. Recommendations: 1) Continue regular diet; double protein TID per diet order 2) Bowel care PRN; monitor need for routine bowel care 3) Weekly scaled weights Addendum: 05/03/23 at [address] Amended: Links added.
--- NOTE | 2023-05-03 16:01 | NUR ---
Nursing Progress Note: Problem : Pt is a 27 year old female admitted on a 5150 for GD. Per 5150 Pt has Hx of Schizophrenia, is making non-sensical statements, reports fear of being murdered and believes "a lot of people are being killed." She is unable to formulate a viable plan for food/clothing/retirement. Pt is currently homeless, has History of being followed by [facility], and stays at the [facility] in [place]. Interventions :Ensured contract for safety, maintained a safe and supportive environment, provided clear and simple instruction, attempted to orient to reality, provided active listening and positive encouragement,monitored behaviors and need for intervention, and maintained Q 15min safety checks. Response: Received pt. sleeping in bed at the beginning of the shift, she awoke early and was observed to be pacing the hallway somewhat restlessly. Pt. attended breakfast, and afterwards continued to exhib anxiety and some irritability AEB pacing and responding aloud to internal stimuli. She was administered PRN Ativan with effectiveness. Pt. perseverates on her desire to discharge and filled out two Appeal Forms which were mailed to [facility] per her request. She stated to this typewriter ribbon winder in a delusional manner, "The doctor doesn't care about me. He wants me to go smoke cigarettes." Pt. then continued on in a disorganized manner to talk about various subjects which were difficult to understand. She stated, "I have kids, they accuse me of having sex with animal, I'm going to be taken in!" Pt. continues to be easily distracted and again abruptly walked away from this conversation. Pt. also presents as somewhat labile, and was observed a short time later to be dancing and singing in the hallway. Pt. napped intermittently throughout the shift and was observed to be interacting appropriately with others at intervals. In the afternoon, pt. again exhibited increased anxiety AEB restlessness and increased response to internal stimuli. PRN Ativan was again administered with effectiveness. Plan : Pt. continues to require a safe and supportive environment and an increase in medications per Dr. Rose.
[2023-05-03] MEDS: NICOTINE POLACRILEX 2 MG LOZENGE BC PRN (17:59)
[2023-05-03 19:42] VITALS: BP 119/70
[2023-05-03] MEDS: ARIPIPRAZOLE 15 MG TABLET PO SCH (20:14)
--- NOTE | 2023-05-04 05:32 | NUR ---
Nursing Progress Note: Imani Problem : Pt is a 27 year old female admitted on a 5150 for GD. Per 5150 Pt has Hx of Schizophrenia, is making non-sensical statements, reports fear of being murdered and believes "a lot of people are being killed." She is unable to formulate a viable plan for food/clothing/correction. Pt is currently homeless, has History of being followed by [facility], and stays at the [facility] in [place]. Interventions :Ensured contract for safety, maintained a safe and supportive environment, provided clear and simple instruction, attempted to orient to reality, provided active listening and positive encouragement,monitored behaviors and need for intervention, and maintained Q 15min safety checks. Response: Received patient. Patient is walking in hallway. Socializing some with other patients. Slightly anxious and pacing. Patient talks to self at times. She states she has auditory hallucinations. She said she called her dad but he is but she tries to call him on the phone. She mentioned that people think she had sex with animals and that she has a child. She became suspicious when I asked her questions about the child or her dad. She asked, Why are you asking? Why do you want to know? Plan : Pt. continues to require a safe and supportive environment and an increase in medications per Dr. Rose.
[2023-05-04 07:15] VITALS: BP 110/70
[2023-05-04] MEDS: cloNIDine 0.1 mg tablet PO PRN (07:21)
[2023-05-04] MEDS: ziprasidone 20mg capsule PO SCH ×2 (07:21→20:28)
[2023-05-04] MEDS: NICOTINE POLACRILEX 2 MG LOZENGE BC PRN ×2 (09:05→17:48)
[2023-05-04] MEDS: acetaminophen 325mg tablet PO PRN (11:08)
--- NOTE | 2023-05-04 15:22 | NUR ---
Nursing Progress Note: Problem : Pt is a 27 year old female admitted on a 5150 for GD. Per 5150 Pt has Hx of Schizophrenia, is making non-sensical statements, reports fear of being murdered and believes "a lot of people are being killed." She is unable to formulate a viable plan for food/clothing/long-term. Pt is currently homeless, has History of being followed by [facility], and stays at the [facility] in [place]. Interventions : Ensured contract for safety, maintained a safe and supportive environment, provided clear and simple instruction, attempted to orient to reality, provided active listening and positive encouragement, monitored behaviors and need for intervention, and maintained Q 15min safety checks. Response: Received pt. sleeping in bed at the beginning of the shift, she awoke early r/t the loud and intrusive behaviors of her roommate which appeared to upset her. Pt. began talking in a disorganized manner, responding aloud to internal stimuli, and pacing in an anxious manner requiring redirection from staff. This fiction writer approached pt. and attempted to provide redirection and positive encouragement, however pt. stared intently in an irritable and suspicious manner and stated, "What do you want?! Is this the [employer]?!" When this fiction writer questioned pt. regarding her need for an anxiolytic, she irritably stated, "Are you trying to drug me?! Do I look like Imani Silver?" Pt. then did request to take PRN Catapres, and this medication was administered with effectiveness. Pt. attended breakfast, and afterwards was observed to be pacing and responding aloud to internal stimuli, though not in an irritated manner as she had been doing previously. 1:1 was completed and pt. continues to deny any S/I or H/I. When questioned regarding A/V/BROWN, pt. does admit to these and stated in a disorganized manner, "They say you're going to fart. Shut the door. Shut the door." Pt. endorsed ongoing paranoid delusional thoughts that others want to hurt her and stated, "I think it's the pain." PRN Tylenol was administered with effectiveness. Plan : Pt. continues to require a safe and supportive environment and per Dr. Rose he will recommend conservatorship.
[2023-05-04] MEDS: LORazepam 1 MG tablet PO PRN (18:56)
[2023-05-04 20:00] VITALS: BP 101/66
[2023-05-04] MEDS: ARIPIPRAZOLE 15 MG TABLET PO SCH (20:28)
--- NOTE | 2023-05-05 01:40 | NUR ---
Nursing Progress Note: Imani Problem : Pt is a 27 year old female admitted on a 5150 for GD. Per 5150 Pt has Hx of Schizophrenia, is making non-sensical statements, reports fear of being murdered and believes "a lot of people are being killed." She is unable to formulate a viable plan for food/clothing/retirement. Pt is currently homeless, has History of being followed by [facility], and stays at the [facility] in May. Interventions : Ensured contract for safety, maintained a safe and supportive environment, provided clear and simple instruction, attempted to orient to reality, provided active listening and positive encouragement, monitored behaviors and need for intervention, and maintained Q 15min safety checks. Response: Received pt. pacing the unit. Approached pt and she was calm and cooperative. She states she is tired and wants to sleep but is afraid. She then talks in a disorganized manner.She states her voices are terrible and that they are mean to her friends and that its not her fault her medications gave her a stroke in the sun. PRN Ativan given with good effect. Pt up for snacks, took all HS medications and is currently sleeping. Plan : Pt. continues to require a safe and supportive environment and per Dr. Rose he will recommend conservatorship.
[2023-05-05] MEDS: ziprasidone 20mg capsule PO SCH (07:42)
[2023-05-05 08:00] VITALS: BP 108/58
[2023-05-05] MEDS: NICOTINE POLACRILEX 2 MG LOZENGE BC PRN (08:47)
--- NOTE | 2023-05-05 12:25 | NUR ---
LPS REFERRAL Completed and sent LPS Referral to [facility]. Discussed the case with [facility] business planner, MELODY Street
--- NOTE | 2023-05-05 13:44 | NUR ---
DISCHARGE PLAN Imani was released from 5270 hearing. She reported she plans on staying at the [place]. Informed her she can follow up with the [facility] or [facility]. Provided her with two bus passes. Requested [facility] special client bus driver pick her up to take her to the [place]. MELODY Quinn
[2023-05-05] MEDS ORDERED: ARIP15TA19 PO (13:50)
[2023-05-05] MEDS ORDERED: NICO-907 BC (13:50)
[2023-05-05] MEDS ORDERED: ZIPR80CA10 PO (13:50)
--- NOTE | 2023-05-05 15:57 | NUR ---
Patient was in no acute distress upon discharge. Had all belongings that where counted in inventory. Had a bus pass to get her to destination. Correct paperwork signed, obtained and sent the correct paperwork for the patient among discharge.
== END 2023-05-05 15:47 | disposition home or self-care (01) | DRG 750 ==
LOC: ER 20:05 → ED HOLD 04-15 20:00 → ADULT MH 04-15 21:01
PROVIDERS: ADMIT Psychiatry & Neurology Psychiatry; ATTEND Psychiatry & Neurology Psychiatry
DX: F20.9 Schizophrenia, unspecified (principal); F15.10 Other stimulant abuse, uncomplicated; Z59.00 Homelessness unspecified; F17.210 Nicotine dependence, cigarettes, uncomplicated; F41.9 Anxiety disorder, unspecified; Z86.73 Personal history of transient ischemic attack (TIA), and cerebral infarction without residual deficits
CPT/HCPCS: 36415; 80053; 80061; 80305; 80320; 81025; 83036; 84443; 85025; 87081; 96372; 99283; C2617; J3486

== ENCOUNTER 2023-05-08 03:41 | Emergency (ER) | payer SELFPAY ==
[~2023-05-08] VITALS: Ht 175.3 cm; Wt 83.8 kg
[~2023-05-08 03:41] MED LIST changes: +ARIP15TA19 PO; -CLOT15CR73 TP; -IBUP-1985 PO; +NICO-907 BC; +ZIPR80CA10 PO
[2023-05-08 03:50] VITALS: BP 104/49
[2023-05-08] MEDS ORDERED: acetaminophen 325mg tablet PO ONE (04:45)
[2023-05-08] MEDS ORDERED: ibuprofen tablet 400 MG TABLET PO ONE (04:45)
== END 2023-05-08 04:53 | disposition home or self-care (01) ==
LOC: ER 03:41
DX: M79.605 Pain in left leg (principal); F20.9 Schizophrenia, unspecified; F12.90 Cannabis use, unspecified, uncomplicated; F15.90 Other stimulant use, unspecified, uncomplicated; Z72.89 Other problems related to lifestyle; Z60.2 Problems related to living alone; Z59.00 Homelessness unspecified; Z56.0 Unemployment, unspecified; Z79.899 Other long term (current) drug therapy; W06.XXXA Fall from bed, initial encounter; Y93.89 Activity, other specified; Y92.89 Other specified places as the place of occurrence of the external cause; Y99.8 Other external cause status
CPT/HCPCS: 99284

== ENCOUNTER 2023-05-14 21:21 | Emergency (ER) | payer SELFPAY ==
[~2023-05-14] VITALS: Ht 170.2 cm; Wt 79.5 kg
[2023-05-14] MEDS ORDERED: ondansetron 4mg rapidly disintigrating tab PO ONE (23:10)
[2023-05-14 23:33] VITALS: BP 102/69
== END 2023-05-14 23:34 | disposition home or self-care (01) ==
LOC: ER 21:21
DX: F19.10 Other psychoactive substance abuse, uncomplicated (principal); R11.2 Nausea with vomiting, unspecified; F20.9 Schizophrenia, unspecified; Z79.899 Other long term (current) drug therapy
CPT/HCPCS: 99283

== ENCOUNTER 2023-07-16 18:42 | Emergency (ER) | payer MEDICAID ==
[~2023-07-16] VITALS: Ht 170.2 cm; Wt 61.4 kg
[2023-07-16 19:04] VITALS: BP 102/61; PULSE 76; RESP 14; TEMP 98.2; O2SAT 100
== END 2023-07-16 19:19 | disposition left against medical advice (07) ==
LOC: ER 18:44
DX: R07.9 Chest pain, unspecified (principal); Z53.21 Procedure and treatment not carried out due to patient leaving prior to being seen by health care provider
CPT/HCPCS: 93005; 99281